=== PATIENT | male | born 1975 | race Caucasian/White ===

== ENCOUNTER 2018-07-16 21:45 | Emergency (ER) | payer OTHER, SELFPAY ==
[2018-07-16 21:46] VITALS: BP 157/94; PULSE 102; RESP 18; TEMP 36.4; O2SAT 95; BMI 44.6
--- NOTE | 2018-07-16 22:20 | ED.VISSUMM ---
- ER Visit Summary Date of Service: 07/16/18 Chief Complaint: Right knee pain History of Present Illness: The patient is a 43 M who presents with right knee pain that began tonight. Patient states he was at a gas station feeling his bobcat gas tank when he stepped off a trailer and felt a pop. Patient states he fell. Patient states the pain is worse over the lateral aspect of the right knee. Patient states the pain is worse with movement and weightbearing. Patient describes the pain as burning. Patient denies any paresthesias or weakness. Patient denies any other injuries. Physical Examination: Vital signs are stable. Patient is afebrile. Patient is in no acute distress. Musculoskeletal exam reveals tenderness over the lateral joint line of the right knee. There is no effusion. There is no bony crepitance or step-off. Range of motion was from 0 to 90 degrees. Further flexion was limited secondary to pain. Extensor mechanism is intact. There is no laxity noted. Henrry test was negative. Varus and valgus stress test were negative. There was pain with Lety testing. Pedal pulses are equal bilateral. There is no calf tenderness. Sensation was intact to light touch bilaterally. Test Results: X-rays of the right knee were obtained. There is no acute fracture loose body noted. These were interpreted by the radiologist and reviewed by myself. Emergency Department Course and Treatment: Patient was instructed to ice and elevate the right knee. Patient was given crutches. Patient states he will take [id number] Aleve as needed for pain. Patient was instructed to follow-up with his primary care physician in 5 to 7 days. Patient and his understood and were agreeable with the plan. All questions were answered. Disposition: Discharge home Impression: Right knee sprain This note was generated with [employer] dictation software. It may contain incorrect words, spelling, and punctuation that were not noted in review of the chart prior to signing ED Disposition - Plan for ED Patient: Disposition: Home or Assisted Living Diagnosis: Right knee sprain Instructions: ED Sprain Knee Referrals: Grant Tijerina [Primary Care Provider] - 5-7 Days
--- NOTE | 2018-07-16 22:23 | ED.DCSUM_ITS ---
- ER Visit Summary Date of Service: 07/16/18 Chief Complaint: Right knee pain History of Present Illness: The patient is a 43 M who presents with right knee pain that began tonight. Patient states he was at a gas station feeling his bobcat gas tank when he stepped off a trailer and felt a pop. Patient states he fell. Patient states the pain is worse over the lateral aspect of the right knee. Patient states the pain is worse with movement and weightbearing. Patient describes the pain as burning. Patient denies any paresthesias or weakness. Patient denies any other injuries. Physical Examination: Vital signs are stable. Patient is afebrile. Patient is in no acute distress. Musculoskeletal exam reveals tenderness over the lateral joint line of the right knee. There is no effusion. There is no bony crepitance or step-off. Range of motion was from 0 to 90 degrees. Further flexion was limited secondary to pain. Extensor mechanism is intact. There is no laxity noted. Henrry test was negative. Varus and valgus stress test were negative. There was pain with Lety testing. Pedal pulses are equal bilateral. There is no calf tenderness. Sensation was intact to light touch bilaterally. Test Results: X-rays of the right knee were obtained. There is no acute fracture loose body noted. These were interpreted by the radiologist and reviewed by myself. Emergency Department Course and Treatment: Patient was instructed to ice and elevate the right knee. Patient was given crutches. Patient states he will take [id number] Aleve as needed for pain. Patient was instructed to follow-up with his primary care physician in 5 to 7 days. Patient and his understood and were agreeable with the plan. All questions were answered. Disposition: Discharge home Impression: Right knee sprain This note was generated with [employer] dictation software. It may contain incorrect words, spelling, and punctuation that were not noted in review of the chart prior to signing ED Disposition - Plan for ED Patient: Disposition: Home or Assisted Living Diagnosis: Right knee sprain Instructions: ED Sprain Knee Referrals: Grant Tijerina [Primary Care Provider] - 5-7 Days
--- NOTE | 2018-07-16 22:30 | RAD_ITS ---
STUDY: X-RAY - RIGHT KNEE REASON FOR EXAM: Male, 43 years old. Pain. TECHNIQUE: 4 view(s) of the knee. COMPARISON: None. FINDINGS: Normal visualized distal femur. Normal visualized proximal tibia and fibula. Normal proximal tibiofibular articulation. There is no demonstrated fracture. Normal medial femorotibial compartment. Normal lateral femorotibial compartment. Normal patellofemoral articulation. There is no demonstrated joint effusion. 5 mm metal foreign body seen in the posterior medial soft tissues. The soft tissue structures are otherwise unremarkable. RAD/Knee 4 or More Views IMPRESSION: No acute abnormality. Electronically Signed: Ramon Shafer MD at 23:12 EDT , Service support ,
[2018-07-16 23:36] VITALS: BP 152/91; PULSE 82; RESP 18; O2SAT 96
== END 2018-07-16 23:36 | disposition home or self-care (01) ==
PROVIDERS: Emergency Provider Emergency Medicine; Family Provider Family Medicine; PCP Family Medicine
DX: S83.91XA Sprain of unspecified site of right knee, initial encounter (principal); R11.0 Nausea; W17.89XA Other fall from one level to another, initial encounter; Y93.9 Activity, unspecified; Y92.9 Unspecified place or not applicable; I10 Essential (primary) hypertension; Z79.899 Other long term (current) drug therapy
CPT/HCPCS: 73564; 99283

== ENCOUNTER → 2018-07-28 | Outpatient (CLI) | payer OTHER, SELFPAY ==
[2018-07-20 08:20] VITALS: BMI 44.6
--- NOTE | 2018-07-28 16:30 | MRI_ITS ---
STUDY: MRI RIGHT KNEE REASON FOR EXAM: Male, 43 years old. Injury 2 weeks ago. TECHNIQUE: Standardized fat and water weighted pulse sequences were obtained in all 3 orthogonal planes. COMPARISON: X-ray July 16, 2018 FINDINGS: There is partial meniscocapsular separation of the posterior horn of the medial meniscus. Normal hyaline cartilage of the medial femorotibial compartment. Normal medial femoral condyle and tibial plateau. There is a partial sprain of the MCL with interstitial and periligamentous edema. Normal distal semimembranosus, gracilis and semitendinosus tendons. There is a lateral meniscus tear of the posterior horn, series 4 images 19/48 and /. Normal hyaline cartilage of the lateral femorotibial compartment. There is reactive marrow edema of the lateral femoral condyle and posterior lateral tibial plateau. Normal proximal tibiofibular articulation. Normal lateral collateral (fibular) ligament. Normal popliteus tendon. Normal biceps femoris tendon. There is discontinuity with rupture and tear of the anterior cruciate ligament (ACL), series 4 image 25/48. Normal posterior cruciate ligament (PCL). Normal congruent patellofemoral articulation. Normal hyaline cartilage of the patellofemoral compartment. Normal medial and lateral patellar retinaculum. Normal quadriceps tendon. There is tendon thickening of the distal patellar tendon, with corticated osseous fragments of the anterior tibial tubercle, consistent with a sequela of remote Carlisle-Schlatter's disease. Normal Hoffa's fat pad. There is a moderate volume joint effusion. The soft tissues are unremarkable. The otherwise visualized osseous structures are unremarkable. MRI/Lower Ext Joint Only (Routine) IMPRESSION: Rupture with tear of the anterior cruciate ligament. Lateral meniscus tear. Meniscocapsular separation of the medial meniscus. Medial collateral ligament sprain. Joint effusion. Bone bruising. Electronically Signed: Anthony Corona MD at 19:07 EDT , Service support ,
== END | disposition home or self-care (01) ==
LOC: MRI 16:14
PROVIDERS: Family Provider Family Medicine; PCP Family Medicine; Referring Provider Orthopaedic Surgery; Visit Provider Orthopaedic Surgery
DX: S89.91XA Unspecified injury of right lower leg, initial encounter (principal); M25.561 Pain in right knee
CPT/HCPCS: 73721

== ENCOUNTER 2018-08-09 10:01 | Day surgery (SDC) | payer OTHER, SELFPAY ==
[2018-08-04 13:22] VITALS: BMI 44.6
--- NOTE | 2018-08-08 16:15 | PCM.HP.BLA ---
History and Physical Date of Admission: 08/09/18 MR#:[id number] Name: SARY GUZMAN Rep #: [id number] : 1975 Provider: Sergio Rizo DO Age/Sex: 43/M Location: [facility] [place] Status: Signed Intake Intake Visit Reasons: right knee Allergies No Known Allergies Allergy (Verified 07/16/18 21:46) Medications Lisinopril [Zestril] 20 mg PO DAILY #30 tab 08/01/15 [Rx Confirmed 07/16/18] rizatriptan 10 mg tablet 10 mg PO PRN PRN 09/13/17 [History Confirmed 07/16/18] PFSH Medical History Diverticulitis (Acute) Migraines (Acute) HTN (hypertension) (Chronic) Surgical History Hx of tonsillectomy (Acute) Family History Grandfather Colon cancer Father Hypertension Thyroid disorder Social History Smoking Status: Former smoker alcohol intake: never HPI right knee: Chief Complaint: right knee MRI f/u Details: Parts of this documentation were recorded by a scribe, this documentation accurately reflects the service provided and the decisions made by me, Sergio Rizo DO 08/01/18 0800. SARY GUZMAN is a 43 year old M here today for F/U after MRI of right knee. Patient states the pain has lessened. Denies any giving out. Patient does have occasional painful popping/clicking. Ortho Exam Right Knee Skin/Wound: No erythema, No ecchymosis, Yes swelling Homans Sign: No 2+: Effusion Knee ROM: Yes ROM-Extension -20 to 0, No ROM-Flexion 0-140 (90) Examination: Yes Med jt line tenderness, Yes Lat jt line tenderness, Yes Pain with flexion, Yes Lety's Test (lat and med pain) Stability: NML: Valgus 0, NML: Valgus 30, NML: Varus 0, NML: Varus 30, 2+: Henrry (2B), 3+: Anterior Drawer Apprehension with Lateral Translation: No KNEE: intact quad and patellar tendon Supplemental Info 07/28/2018 MRI right knee: ACL rupture posterior horn lateral meniscus tear medial meniscal capsular separation and MCL sprain Assessment & Plan Problems 1. Other tear of lateral meniscus of right knee as current injury, subsequent encounter S83.281D 2. Peripheral tear of medial meniscus of right knee as current injury, subsequent encounter S83.221D 3. Complete tear of anterior cruciate ligament of right knee, subsequent encounter S83.511D Plan Reviewed patient MRI of right knee. He does have a full-thickness ACL tear a radial tear posterior horn lateral meniscus and a meniscal capsular separation medial meniscus. He has been improving and denies instability. We did discuss ACL reconstruction medial meniscus repair if needed partial lateral meniscectomy versus repair as recommended surgical intervention. However since he is 43 and not having instability and his pain is improving he does not necessarily require an ACL reconstruction we did discuss hamstring compensation. He wishes to think it over and will let us know how he wishes to proceed. Patient educated that he did tear is ACL, lateral and medial meniscus. Educated that his lateral meniscus may be non repairable and would need to be partially removed. May reconstruct the ACL and possibly the medial meniscus repaired. Would use a cadaver graft. If he does not wish to have surgery he can do PT and strengthen his other muscles in the knee. If he chooses to repair the ACL and meniscus he will be non-weight bearing for 6 weeks post op for a meniscus repair. If patient wishes to proceed with surgery he could have this done on 08/11/18 or sometime in August. Reviewed the pre-operative plans with the patient. Risks and benefits of the procedure were fully explained, including but not limited to infection, neurovascular injury, continued pain, arthritis, stiffness, need for further surgery, re-injury, DVT, PE, general risks of anesthesia, and loss of limb or life. The patient understands all the risks/benefits. Educated that this surgery could over 2 hours for all 3 repairs. Patient wishes to think about his options and call into office when he decides what he would like to proceed with. Coding Level of Care Code Off vis,est,level 3 Diagnoses Other tear of lateral meniscus of right knee as current injury, subsequent encounter S83.281D ??Encounter type: subsequent encounter ??Tear current or old: current ??Meniscus tear of knee type: other type Peripheral tear of medial meniscus of right knee as current injury, subsequent encounter S83.221D ??Encounter type: subsequent encounter ??Tear current or old: current ??Meniscus tear of knee type: peripheral Complete tear of anterior cruciate ligament of right knee, subsequent encounter S83.511D ??Encounter type: subsequent encounter 08/01/18 1521 <Electronically signed by Sergio Rizo DO> Date Sergio Rizo DO I have re-examined the patient. There are no clinical changes since date of exam
[2018-08-09] VITALS (8 sets, daily range): BP systolic 127–155; BP diastolic 72–100; PULSE 65–87; RESP 14–18; TEMP 36–36.6; O2SAT 87–97; BMI 44.8
[2018-08-09] MEDS: Cefazolin 2 GM in 0.9% Normal Saline 100 ML IV (12:59)
[2018-08-09] MEDS: Epinephrine (1 mg/ml) 1 MG/ML VIAL (13:31)
[2018-08-09] MEDS: Bupiv/Epi 0.5% Mpf 30 ML Vial (13:31)
[2018-08-09] MEDS: Bupivacaine Mpf 0.5% 30 ML VIAL (14:43)
[2018-08-09] MEDS: Morphine 4 MG/ML Syringe (14:43)
--- NOTE | 2018-08-09 15:03 | DCINST_ITS ---
Discharge Diet: No Restrictions Weight Bearing Status: Weight bearing as tolerated Additional Activity Instructions:: Ice and elevate next 7 days .keep dressing on clean and dry for 48 hours then may remove begin showering daily but do not submerge in tub or pool. After shower may apply Band-Aids . Encourage knee range of motion weightbearing as tolerated, use crutches until confident in knee then may discontinue. No strenuous activity. When not ambulating keep iced and elevated next 72 hours. Call your doctor if you observe: Fever of 101 or Higher, Uncontrolled pain Additional Instructions: take aspirin 325 mg 1 tab by mouth every 8hrs for 2 weeks to prevent blood clot. Allergies/Adverse Reactions: Allergies No Known Allergies Allergy (Verified 08/08/18 15:57) Medications to take at Discharge Lisinopril [Zestril] 20 mg PO DAILY #30 tab 08/01/15 rizatriptan 10 mg tablet 10 mg PO PRN PRN 09/13/17 Aspirin 325 mg PO BID 14 Days #28 tablet 08/09/18 Oxycodone HCl/Acetaminophen [Percocet 5/325] 1 - 2 tablet PO Q4H PRN PRN 6 Days #50 tablet 08/09/18 The following prescriptions were given: Oxycodone HCl/Acetaminophen [Percocet 5/325] 1 - 2 tablet PO Q4H PRN PRN 6 Days #50 tablet PRN Reason: Pain Aspirin 325 mg PO BID 14 Days #28 tablet Primary Care Physician: Grant Tijerina [Primary Care Provider] - Test Results: Test results from this visit will be discussed in further detail at your follow- up appointment, if applicable. Please Follow Up With: Sergio Rizo DO - 2 weeks
--- NOTE | 2018-08-09 15:15 | OP.PCM_ITS ---
Report of Operation Date of Procedure: 08/09/18 Description of Surgical Findings:: Preoperative diagnosis: Right knee ACL rupture questionable medial meniscus meniscal capsular separation posterior root lateral meniscus tear Postoperative diagnosis: ACL rupture small radial tear posterior root lateral meniscus no meniscal tear medially small area grade III chondromalacial lateral femoral condyle Procedure: Arthroscopic ACL reconstruction with semitendinosus RTI allograft partial lateral meniscectomy implants: Arthrex ACL button 9.0 biocomposite tibial screw Anesthesia: General postoperative femoral block EBL: 15 Complications: None Condition: Stable to PACU Indication for procedure: This is a 43-year-old male who was jumping from his truck and landed incorrectly medial lately had an injury to his right knee did have MRI with the aforementioned diagnoses. Discussed operative versus nonoperative intervention risk benefits and alternatives were reviewed including risk of bleeding infection nerve, artery, bone, tissue damage, blood clot need for further surgery and continued pain. Expected postoperative course postoperative physical therapy needs Procedure: Patient was met in the preoperative holding area. Once again the operative extremity was identified by both patient and physician and was marked. Patient was met by anesthesia and brought back to the operating room on a wheeled cart and transferred to the operating table in the supine position. Anesthesia was started. A well-padded tourniquet was placed on the right upper thigh. A right lower extremity leg wright was placed. The left lower extremity was well-padded the end of the bed was flexed to 90 degrees. The patient was prepped and draped in the usual sterile fashion and a timeout was called to ensure the proper patient procedure and extremity were being contemplated. An Esmarch was used to exsanguinate the extremity and the tourniquet was inflated to 300 mmHg. On the back table the allograft was prepared with 2 fiber link whipstitches and was sized as an 8-1/2 diameter. 11 blade scalpel was used to make a stab incision in the anterior lateral portal and the arthroscope was inserted into the intercondylar notch inflow and outflow tubes were attached and arthroscopic visualization began. The medial compartment was entered and 18- gauge gauge spinal needle was used to establish an anterior medial portal both portals were hugging the patellar tendon to aid in the ACL reconstruction visualization of the medial compartment with probing there was no meniscal capsular separation and no significant hyalin cartilage defects. The intercondylar notch was entered the stump of the ACL was found and was debrided and the footprints were prepared on the femoral and tibial side with a shaver and ArthroCare wand. The lateral compartment was entered and there was noted to be a radial tear of the posterior root which was debrided with a shaver but there is no further meniscal pathology. There was an area of grade 3 cartilage wear that was in isolation over the lateral femoral condyle there was no loose cartilage in the area. The patellofemoral space was investigated and was free of pathology. At this point the arthroscope was repositioned into the medial portal and the femoral guide was used and set at 110 degrees and with the use of a flip cutter the femoral tunnel was made in the low posterior position the tunnel measured 30 mm. At this point a fiber stick was inserted through the cannula and was retrieved through the lateral portal instead it to itself for later use. Attention was then turned towards the tibial tunnel and once again with the use of a flip cutter set at 60 degrees the tibial tunnel was cut in a retrograde manner. Following this a guidepin was inserted through the tibial tunnel and a reamer was used to open the lateral cortex only. Shaver was then inserted through the tunnel and debris was removed we then retrieved the fiber wire through the tibial tunnel switched our arthroscope to a 70 degree camera and visualize the button passing through the femoral tunnel and flipping once we were assured the button was indeed flipped the graft was then advanced 25 mm into the femoral tunnel the graft was marked. At this point the graft was tensioned and cycled nitinol wire was passed anteriorly on the tibial socket and a 9 mm interference bio composite screw was inserted over the wire the remainder of the tensioning was performed in the femoral tunnel by advancing the white tails of the bone there was excellent positioning of the graft there was no graft impingement in full extension the intra-articular injection was made through the scope suture portals were closed with 3-0 nylon a 3-0 Vicryl was used as a subcutaneous stitch in the tibial incision and 3-0 nylon was used in the skin. Dressing was applied in the form of Xeroform 4 x 4 ABD web roll and an Jax wrap and knee immobilizer patient tolerated the procedure well all counts were correct brought back to the PACU in stable condition
[2018-08-09] MEDS: Acetaminophen 325 MG Tablet PO (16:56)
[2018-08-09] MEDS: oxyCODONE 5 MG Tablet PO (16:56)
== END 2018-08-09 17:27 | disposition home or self-care (01) ==
LOC: SDC 10:07 → AC 10:08
PROVIDERS: Family Provider Family Medicine; PCP Family Medicine; Referring Provider Orthopaedic Surgery; Visit Provider Orthopaedic Surgery
PROC: (CPT 29881; principal; 2018-08-09 12:25)
DX: S83.511A Sprain of anterior cruciate ligament of right knee, initial encounter (principal); W17.89XA Other fall from one level to another, initial encounter; Y93.9 Activity, unspecified; Y92.9 Unspecified place or not applicable; Y99.9 Unspecified external cause status; S83.281A Other tear of lateral meniscus, current injury, right knee, initial encounter; I10 Essential (primary) hypertension; Z87.891 Personal history of nicotine dependence; G43.909 Migraine, unspecified, not intractable, without status migrainosus; Z79.899 Other long term (current) drug therapy
CPT/HCPCS: 01400; 29881; 29888; 64447; J7120; J2405

== ENCOUNTER 2018-12-07 16:00 | Outpatient (RCR) | payer OTHER, SELFPAY ==
[2018-08-19 14:32] VITALS: BMI 44.8
--- NOTE | 2018-08-23 14:06 | HP.PTEVAL_ITS ---
Patient's Visit Information SARY GUZMAN is a 43 year old M referred to Physical Therapy by TRISHA Portillo with a diagnosis of R ACL reconstruction and late menisectomy s/p 08-09-18. Date of Evaluation: 08/23/18 Physical Therapist: KAITY Multani - Visit Plan Frequency: 2-3x /Week Duration: 3 Months Plan: +++Hernandes Protocol. 2-3 X/ week for 8 weeks for R knee AROM, stretching, strengthening of hip and knee, gait training, balance and proprioception, with HEP and E-stim and ice as needed. - Subjective Findings: Pt injured himself by mis stepping a 3 foot drop. Pt was feeling good this weekend but now he is swollen and not feeling so good. Pt had R ACl surgery and lateral menisecotmy on 08-09-18. said he could drive. Today was his first day back to work.... 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 He is to wear his brace when he is out and about. He has stairs at home ( with a railing). He has not taken pain meds since Wednesday. he is still icing and elevating. He is not sleeping great... he is uncomfortable and hard to roll over. - Pain R knee pain Pain Intensity (Out of 10): 3 - Objective Gait: walks with decrease stance time on the R LE. Knee AROM: - 2 degrees and 95 degrees R knee flexion. Slight extension lag with SLR.. Pt is able to complete 2 X 10 SLR without issue. LE MMT: R knee flexion and extension was not tested. R hip abd 4/5. L knee flex and ext 4+/5, L hip abd 4+/5. stairs: step 2 gait pattern... Good paterllar mobility. Swelling present but not excessive - Goals Goal 1:: I HEP Goal Time Frame: 4-6 Weeks Goal 2:: Be able to walk with normal gait pattern without having a limp Goal Time Frame: 4-6 Weeks Goal 3:: Increase R knee AROM 0 degrees to 125 degrees R knee flexion Goal Time Frame: 4-6 Weeks Goal 4:: Increase R LE strength by 1/2 muscle grade ( at time of eval: R knee flexion and extension was not tested and R hip abd 4/5) Goal Time Frame: 4-6 Weeks - Rehabilitation Potential Rehabilitation Potential: Good - Anticipated Interventions Patient/Client Instruction: Educate patient on: Condition, Plan of Care For the Purpose of:: To decrease pain, To decrease swelling/inflammation, To increase ROM, To improve nutrient delivery to tissue, To improve muscle performance and motor function, To improve ability to perform ADL's, To increase tolerance to activity/condition/position, To improve performance and independence with ADL's, To improve ability of physical actions for home/community/work/leisure, To improve gait and locomotor functions, To improve health of tissue, To decrease soft tissue restriction, To increase flexibility/ROM, To improve balance Therapeutic Exercise to Include: Strength training, Endurance training, Balance training, Flexibilty training, Gait and locomotor training, Active ROM For the Purpose of:: To decrease pain, To decrease swelling/inflammation, To increase ROM, To improve nutrient delivery to tissue, To improve muscle performance and motor function, To improve ability to perform ADL's, To increase tolerance to activity/condition/position, To improve performance and independence with ADL's, To decrease level of supervision to perform tasks, To improve ability of physical actions for home/community/work/leisure, To improve gait and locomotor functions, To improve health of tissue, To decrease soft tissue restriction, To increase flexibility/ROM, To improve balance Functional Training to Include: Gait training For the Purpose of:: To improve gait and locomotor functions IF ES: Yes Cryotherapy (ice pack, ice massage): Yes For the Purpose of:: To decrease pain, To decrease swelling/inflammation, To increase ROM, To improve nutrient delivery to tissue Thank you for the opportunity to evaluate your patient. For Medicare and Medicare HMO plans, please review the plan of care and approve it. It will need to be FAXED BACK to us at [phone] for Medicare purposes. For Medicare only, by signing this I certify the plan of care. Please let me know if there are questions or concerns regarding this plan of care. Physician Signature: Date:
--- NOTE | 2018-10-04 16:16 | HP.PTREVAL ---
TRISHA Portillo, It has been my pleasure to treat SARY GUZMAN over the last 10 visits for R ACL reconstruction and late menisectomy s/p 08-09-18. Please see the progress note below for an update on the physical therapy plan of care! Subjective: Pt has a follow up with Dr Mcnair on Oct 28. He is doing his original HEP at this point. Pt feels that his R knee is still weak. Objective/Function: Knee AROM: -2 degrees from full extension to 122 degrees R knee flexion. Stairs: Still has trouble due to strength ascending the steps with the R LE and slightly decreased eccentric control descending the stairs. SLB R approx 8 deconds ( L approx 10 seconds). LE MMT: R hip abd 4/5 and L 4+/5, R Plan Plan: +++Hernandes Protocol. 2-3 X/ week for 8 weeks for R knee AROM, stretching, strengthening of hip and knee, gait training, balance and proprioception, with HEP and E-stim and ice as needed. Goals Goal 1:: I HEP Goal Time Frame: 4-6 Weeks Goal Progress: Progressing Goal 2:: Be able to walk with normal gait pattern without having a limp Goal Time Frame: 4-6 Weeks Goal Progress: Progressing Goal 3:: Increase R knee AROM 0 degrees to 125 degrees R knee flexion Goal Time Frame: 4-6 Weeks Goal 4:: Increase R LE strength by 1/2 muscle grade ( at time of eval: R knee flexion and extension was not tested and R hip abd 4/5) Goal Time Frame: 4-6 Weeks Goal Progress: Progressing Anticipated Interventions Patient/Client Instruction: Educate patient on: Condition, Plan of Care For the Purpose of:: To decrease pain, To decrease swelling/inflammation, To increase ROM, To improve nutrient delivery to tissue, To improve muscle performance and motor function, To improve ability to perform ADL's, To increase tolerance to activity/condition/position, To improve performance and independence with ADL's, To improve ability of physical actions for home/community/work/leisure, To improve gait and locomotor functions, To improve health of tissue, To decrease soft tissue restriction, To increase flexibility/ROM, To improve balance Therapeutic Exercise to Include: Strength training, Endurance training, Balance training, Flexibilty training, Gait and locomotor training, Active ROM For the Purpose of:: To decrease pain, To decrease swelling/inflammation, To increase ROM, To improve nutrient delivery to tissue, To improve muscle performance and motor function, To improve ability to perform ADL's, To increase tolerance to activity/condition/position, To improve performance and independence with ADL's, To decrease level of supervision to perform tasks, To improve ability of physical actions for home/community/work/leisure, To improve gait and locomotor functions, To improve health of tissue, To decrease soft tissue restriction, To increase flexibility/ROM, To improve balance Functional Training to Include: Gait training For the Purpose of:: To improve gait and locomotor functions IF ES: Yes Cryotherapy (ice pack, ice massage): Yes For the Purpose of:: To decrease pain, To decrease swelling/inflammation, To increase ROM, To improve nutrient delivery to tissue Please do not hesitate to contact me at [phone] by phone or if you have questions or concerns regarding this new plan of care! Sincerely, Geena Hernandez, MPT
--- NOTE | 2018-12-07 16:28 | HP.PTDCSUM ---
HP - PT D/C Summary It has been my pleasure to treat SARY GUZMAN under orders from TRISHA Portillo, for the diagnosis of R ACL reconstruction and late menisectomy s/p 08-09-18 for a total of 21 visit(s). Discharge Date: 12/07/18 Please see the following information for a summary of their discharge status. - Subjective Subjective: Pt feels good. No pain. He feels strong. - Pain R knee pain Pain Intensity (Out of 10): 0 - Overall Improvement % Improvement: 95 - Objective Objective/Function: R AROM 0-130 degrees flexion. Normal gait pattern. Able to hop in place without any pain. LE MMT: R hip abd 4/5, knee flex and knee ext 4/5, hip ext 4/5. - Goals Goal 1:: I HEP Goal Progress: Goal Met Goal 2:: Be able to walk with normal gait pattern without having a limp Goal Progress: Goal Met Goal 3:: Increase R knee AROM 0 degrees to 125 degrees R knee flexion Goal Progress: Goal Met Goal 4:: Increase R LE strength by 1/2 muscle grade ( at time of eval: R knee flexion and extension was not tested and R hip abd 4/5) Goal Progress: Goal Met - Plan Plan: DC PT to HEP - D/C Information Discharge Comments: DC PT to HEP to continue with Clam shells, Inchworms, and SLB and squatting activities If there are questions or concerns regarding this patient's physical therapy, please feel free to call me at [phone]. Thank you for the referral of this patient. Sincerely, Geena Hernandez, MPT
== END 2018-12-07 19:00 | disposition home or self-care (01) ==
LOC: PT 16:00
PROVIDERS: Family Provider Family Medicine; PCP Family Medicine; Referring Provider Physician Assistant; Visit Provider Physician Assistant
DX: Z98.890 Other specified postprocedural states (principal)
CPT/HCPCS: 97014; 97032; 97110; 97161; 97530; G0283

== ENCOUNTER 2020-10-14 10:24 | Day surgery (SDC) | payer OTHER, SELFPAY ==
[2020-07-17 10:57] VITALS: BMI 48.7
[2020-10-14] VITALS (7 sets, daily range): BP systolic 102–144; BP diastolic 60–96; PULSE 84–101; RESP 16–18; TEMP 35.9–37; O2SAT 93–97; BMI 48.1
--- NOTE | 2020-10-14 | LES_PTH ---
PATIENT: SARY GUZMAN LOC: [facility] [place] U#:[id number] AGE/SX: 45/M ROOM: RE10/14/[address]: Dr. Eliezer Kemp MD : 1975 BED: DIS: 10/14/2020 SPEC #: [id number] RECD: 10/14/20 15:01 STATUS: JERO REMedardo #: [id number] BRITTANEY: 10/14/20 00:[address]: Eliezer Kemp DEPT: SURGICAL PATHOLOGY RECD BY: Fernando Adams ENTERED: 10/15/20 08:02 SP TYPE: Lesion OTHR DR: Dr. Grant Tijerina MD Tissues: Skin of scalp, NOS Procedures: Surgery Specimen Level IV HEADER OPERATION: Excision lesion top of scalp, skin grafting PRE-OP DIAGNOSIS: Excision 1.1 cm pigmented lesion top of scalp, skin grafting TISSUE SUBMITTED: Lesion of scalp, stitch a 12 o?clock MICROSCOPIC DIAGNOSIS Skin lesion of scalp, biopsy: Pigmented compound nevus. AM:agatha 10/16/2020 COMMENT Case has been reviewed in consultation with Dr. rUrutia who concurs with the above diagnosis. IDC:SJ MICROSCOPIC DESCRIPTION Slides are reviewed. GROSS DESCRIPTION Received in fixative is one container labeled with the patient's name and designated lesion top of scalp, suture at 12 o?clock. The specimen consists of a discoid fragment of hair-bearing skin measuring 1.2 x 1.2 cm and a depth of excision measuring 0.4 cm. The specimen is differentially inked as follows: 12 o?clock ? black, 3 o?clock ? yellow, 6 o?clock ? blue and 9 o?clock ? red. The specimen is serially sectioned and totally submitted in one cassette. / AM:agatha 10/15/20 TC:5 CPT: 37977
--- NOTE | 2020-10-14 10:02 | PCM.HP.BLA ---
History and Physical Date of Admission: 10/14/20 HISTORY OF PRESENT ILLNESS 45 year old man presents with a pigmented lesion top of scalp that has increased in size over the last several months and has become more raised in configuration and has developed irregular borders. He has cut it while shaving. He also has noticed it has gotten darker in color. He denies fever. He denies trauma. He denies any recent infection. He presents at this time for further evaluation and treatment. PAST MEDICAL HISTORY Diverticulitis HTN (hypertension) Migraines Neoplasm of skin of scalp PAST SURGICAL HISTORY tonsillectomy ALLERGIES No Known Allergies MEDICATIONS lisinopril rizatriptan FAMILY HISTORY Grandfather Colon cancer Father Hypertension Thyroid disorder Kidney disease Mother High cholesterol SOCIAL HISTORY Smoking Status: Never smoker alcohol intake: current alcohol intake frequency: holidays/special occasions only substance use type: does not use REVIEW OF SYSTEMS General - Denies fever, fatigue, and weight loss. Eyes - Denies cataracts and glaucoma. ENT - Denies nasal congestion and sore throat. Endocrine - Denies excessive thirst and urination. Skin - Has enlarging pigmented lesion top of scalp. Denies skin cancer. Musculoskeletal - Denies joint pain, joint stiffness, weakness of muscles and joints, back pain, and arthritis. Neuro - Has headaches. Cardiovascular - Denies chest pain, fatigue, and shortness of breath with exertion. Psych - Denies anxiety and depression. Respiratory - Denies chronic cough and shortness of breath. Gastrointestinal - Denies nausea, vomiting, diarrhea, and constipation. Hematologic - Denies abnormal bruising and bleeding. Genitourinary - Denies hematuria and urinary frequency. PHYSICAL EXAMINATION General - Alert and Oriented. HEENT - PERRL. EOMI. Throat is clear. On the top of scalp is a pigmented lesion. Measures 1.1 cm. Has irregular borders. It is raised in configuration. No ulceration. Lesion is nontender. No other suspicious lesions noted. Neck - Supple and nontender. No cervical adenopathy. No suspicious lesions noted. Lungs - Clear to auscultation. Heart - Regular rate and rhythm. Abdomen - Soft and nondistended. Extremities - FROM. No axillary adenopathy. Radial pulses are palpable. Neuro - CN II-XII grossly intact. Psych - Normal mood and affect. ASSESSMENT 1.1 cm pigmented lesion top of scalp. PLAN Recommend excision of this pigmented lesion top of scalp and send it to Pathology for analysis to rule out carcinoma. If carcinoma is present, then further excision will be done. Reconstruction will be with skin grafting. Surgery can be done on an outpatient basis under local anesthesia and IV sedation. Patient was informed of the risks and complications of the procedure including alternatives to surgery. These were discussed with the patient personally. Patient voices understanding and wishes to proceed. Some of the risks and complications were included in a form from the [employer]. We discussed the current risks associated with COVID-19. While it is understood that there is a community spread of COVID-19, the risk of mat COVID-19 while at [facility] ([facility]) is very low; however, the risk cannot be completely mitigated because of the community spread of the disease. We discussed in detail the risk of exposure to and/or potential harm posed by the COVID-19 virus with having a surgery/procedure at this time versus the risk of delaying the surgery/procedure. It is not possible to know either the risk of delaying the surgery or procedure or chance of getting an infection with perfect accuracy, but a joint decision was made to proceed at this time with the scheduled surgery/procedure as indicated on the consent form. Patient was notified that we will need to comply with any screening or testing [facility] wishes to perform or that surgery may be delayed for any positive results.
[2020-10-14] MEDS: Lactated Ringers 1,000 ML 100 ML IV (11:59)
[2020-10-14] MEDS: Lidocaine 1% /Epi 1:100 (20ml) 20 ML Vial (12:44)
[2020-10-14] MEDS: Mupirocin Ointment 22gm Tube 1 APPLIC (13:14)
--- NOTE | 2020-10-14 13:48 | PCM.OPRPT ---
Problems Associated Problem List Diagnoses (1) Neoplasm of skin of scalp: Report of Operation Date of Procedure: 10/14/20 Pre-Operative Diagnosis: 1.1 cm pigmented lesion top of scalp. Post-Operative Diagnosis: Same. Surgery/Procedure Performed:: Excision 1.1 cm pigmented lesion top of scalp with FTSG reconstruction from right neck (2.25 cm2). Description of Surgical Findings:: 45 year old man presents with a pigmented lesion top of scalp that has increased in size over the last several months and has become more raised in configuration and has developed irregular borders. He has cut it while shaving. He also has noticed it has gotten darker in color. He denies fever. He denies trauma. He denies any recent infection. Patient was informed of the risks and complications of the procedure including alternatives to surgery. These were discussed with the patient personally. Patient voices understanding and wishes to proceed. Some of the risks and complications were included in a form from the [employer]. Size of skin graft top of scalp - 1.5 x 1.5 cm. Surgeon: Eliezer Kemp chemical process engineer: None Type of Anesthesia: General Specimen's removed: Pigmented lesion top of scalp to Pathology. Drains: None. Estimated Blood Loss (mL): 25. Description of Procedure: Patient was taken to OR in supine position and was placed under general anesthesia. The top of scalp and right neck areas were prepped and draped in the usual fashion. SCD's were placed for DVT prophylaxis. Perioperative antibiotics were given intravenously. Using xylocaine with epinephrine, the lesion top of scalp and an ellipse of skin right neck were infiltrated. After waiting 5 minutes for the anesthetic to take effect, I excised the pigmented lesion top of scalp in a circular fashion into the subcutaneous tissue. A suture was marked at 12 oclock position for pathology orientation. The lesion was sent to Pathology for analysis to rule out carcinoma. I excised the lesion top of scalp with a 2 mm margin in all directions thus making this a 1.5 cm excision. Hemostasis was obtained with electrocautery. The size of the defect to be skin grafted is 1.5 x 1.5 cm or 2.25 cm2. I made an elliptical oblique incision right neck down into the subcutaneous tissue. Th subcutaneous tissue was removed from the undersurface of the dermis thus fashioning a full thickness skin graft. The skin graft was placed in saline. I closed the right neck donor wound in a layered fashion. Hemostasis was obtained with electrocautery. For the deep dermis and subcutaneous tissue I used 5-0 Monocryl interrupted sutures. The skin was approximated with 5-0 Prolene simple interrupted sutures. Antibiotic ointment was applied followed by a 4x4 gauze and an Op-site dressing. I took the full thickness skin graft and placed it in the scalp defect and secured it to the skin edges with 4-0 Chromic interrupted sutures. 4-0 Chromic sutures were also used for central quilting stabilization. Antibiotic ointment was applied to the skin graft followed by Xeroform gauze and cotton ball soaked in saline. It was secured to the skin with 4-0 Nylon tie over stent suture dressing. Patient tolerated the procedure well and was sent to PACU in satisfactory condition. Patient will be sent home on antibiotics and pain medication. He will keep his head elevated during the initial postoperative period. Patient will followup at end of the week for a wound check and skin graft dressing change and for discussion of the pathology report. The sutures from the donor incision right neck will be removed the following week. Grafts/Implants Used: None. Complications None. Admit VTE Documentation VTE Present on Admission: No VTE Mechan Device Prophylaxis: SCD's VTE Pharm Prophylaxis ordered?: No Addendum Addendum: Surgery Charges CPT - 94337 ICD-10 - D49.2 73117 D49.2
--- NOTE | 2020-10-14 13:53 | PCM.DC ---
Discharge Instructions Diet Discharge Diet: No restrictions Activity Discharge Activity: May Shower (in two days from the neck down. Wash face gently in the sink.) and - (no heavy lifting. keep head elevated.) May shower in (days): 2 (in two days from the neck down. Wash face gently in the sink.) May resume sexual activity in: No Restrictions Weight Bearing Status: Weight bearing as tolerated Lifting Restrictions: 20 lbs. Keep extremity elevated above heart level: - (elevate head.) Dressing / Incision Call your doctor if your incision/area has: Continuous Slow Oozing, Sudden Increased Bleeding, Increased Pain/ Swelling, Increased Redness, Foul Smelling Discharge and Swelling at the incision site Call your doctor if you observe: Fever of 101 or Higher, Coldness, Increased Pain, Shortness of breath, Chest pain, Calf discomfort and Uncontrolled pain Change Dressing in: do not change dressing (will change the scalp graft dressing in the office.) Remove Dressing in: 2 days (neck dressing only.) Cleanse incision/area with: - (may shower from the neck down in two days. Wash face gently in the sink.) Follow Up Care Please Follow Up With: Eliezer Kemp MD When: wednesday10/18/20. Call [phone] for appt. Test Results: Test results from this visit will be discussed in further detail at your follow-up appointment, if applicable. Discharge Plan Admission Primary Reason for Your Visit: lesion top of scalp surgery Attending Provider: Eliezer Kemp Primary Care Provider: Grant Tijerina Discharge Orders/Prescriptions Prescriptions: New clindamycin HCl [Cleocin HCl] 300 mg capsule 300 mg PO TID 5 Days Qty: 15 RF: 0 oxycodone-acetaminophen [Percocet] 5-325 mg tablet 1 tab PO Q6H PRN (Reason: pain (scale score 7-10)) 5 Days Qty: 20 RF: 0 Continued lisinopril 20 MG tablet 20 mg PO DAILY Qty: 30 RF: 1 rizatriptan 10 mg tablet 10 mg PO PRN PRN (Reason: Migraine Symptoms) RF: 0 Referrals / Follow Up: Grant Tijerina MD [Primary Care Provider] - Disposition Disposition (needs filled in before D/C Order can be placed): Home, Self Care
[2020-10-14] MEDS: oxyCODONE 5 MG Tablet PO (15:44)
[2020-10-14] MEDS: Acetaminophen 325 MG Tablet PO (15:44)
== END 2020-10-14 15:53 | disposition home or self-care (01) ==
LOC: SDC 10:29 → AC 10:58
PROVIDERS: PCP Family Medicine; Referring Provider Surgery; Visit Provider Surgery
PROC: (CPT 11422; principal; 2020-10-14 11:45)
DX: D22.4 Melanocytic nevi of scalp and neck (principal); I10 Essential (primary) hypertension; G43.909 Migraine, unspecified, not intractable, without status migrainosus; Z87.19 Personal history of other diseases of the digestive system; Z79.899 Other long term (current) drug therapy
CPT/HCPCS: 00300; 11422; 15220; 87426; 88305; C9803; J7120; J2405

== ENCOUNTER → 2020-11-01 | Outpatient (CLI) | payer OTHER, SELFPAY | END | disposition home or self-care (01) | PROVIDERS: PCP Family Medicine; Visit Provider Nurse Practitioner Family | DX: T86.821 Skin graft (allograft) (autograft) failure (principal); D49.2 Neoplasm of unspecified behavior of bone, soft tissue, and skin | CPT/HCPCS: 87070; 87075; 87205 ==

== ENCOUNTER → 2022-09-16 | Outpatient (CLI) | payer OTHER, SELFPAY ==
[2022-09-20 01:06] LABS: Beef <0.10 kU/L (Class 0); Clam <0.10 kU/L (Class 0); Codfish <0.10 kU/L (Class 0); Corn <0.10 kU/L (Class 0); Egg, White <0.10 kU/L (Class 0); Milk (Cow) <0.10 kU/L (Class 0); Peanut <0.10 kU/L (Class 0); Pork <0.10 kU/L (Class 0); SCALLOP <0.10 kU/L (Class 0); SESAME SEED <0.10 kU/L (Class 0); Shrimp <0.10 kU/L (Class 0); Soybean <0.10 kU/L (Class 0); Tomato <0.10 kU/L (Class 0); Walnut, (Food) <0.10 kU/L (Class 0); Wheat <0.10 kU/L (Class 0)
== END | disposition home or self-care (01) ==
PROVIDERS: PCP Family Medicine; Referring Provider Otolaryngology Otolaryngology/Facial Plastic Surgery; Visit Provider Otolaryngology Otolaryngology/Facial Plastic Surgery
DX: T78.40XA Allergy, unspecified, initial encounter (principal)
CPT/HCPCS: 36415; 86003

== ENCOUNTER → 2023-03-22 | Outpatient (CLI) | payer OTHER, SELFPAY ==
--- NOTE | 2023-03-22 16:20 | MRI_ITS ---
STUDY: MRI RIGHT HIP REASON FOR EXAM: Male, 47 years old. Chronic right hip pain. TECHNIQUE: Standardized fat and water weighted pulse sequences were obtained in all 3 orthogonal planes. COMPARISON: None. FINDINGS: There is degenerative arthrosis of the right hip joint with joint space narrowing, small marginal osteophyte formation, chondral thinning, and mild subchondral marrow edema in the right superior acetabulum. There is a small right hip joint effusion. Normal labrum. Intact femoral head, femoral neck and intratrochanteric region. There is no demonstrated fracture. Normal gluteus minimus, medius and iliopsoas tendons and distal insertions. There is mild right iliopsoas bursitis. There is no trochanteric bursitis. Normal superior and inferior pubic rami. Normal pubic symphysis. Normal ischial tuberosity. Normal origin of the hamstring tendons. Normal visualized iliac wing, sacroiliac joint, and sacral ala. Normal visualized soft tissue structures of the pelvis. MRI/Lower Ext Joint Only (Routine) IMPRESSION: Degenerative arthrosis of the right hip joint, with a small right hip joint effusion. Mild right iliopsoas bursitis. Electronically Signed: Leoncio Staton MD at 8:24 EST Reading Location ID and State: [facility] / [place] , Service support ,
== END | disposition home or self-care (01) ==
LOC: MRI 16:15
PROVIDERS: PCP Family Medicine; Referring Provider Family Medicine; Visit Provider Family Medicine
DX: M25.551 Pain in right hip (principal)
CPT/HCPCS: 73721

== ENCOUNTER → 2024-10-02 | Outpatient (CLI) | payer OTHER, SELFPAY ==
--- NOTE | 2024-10-02 10:26 | MRI_ITS ---
PROCEDURE: UPPER EXT/NO JT/ WO 10/02/2024 REASON FOR EXAM: PAIN, RULE OUT STENER LESION TECHNIQUE: MRI of the left thumb without contrast. Multiplanar and multisequence images were obtained without IV contrast administration. COMPARISON: COMPARISON: Left hand study 09/20/2024. FINDINGS: Bone and bone Marrow: Edema is seen on both sides of the 1st interphalangeal joint, best seen on the sagittal T2 weighted fat-suppressed image, concerning for bone bruising or other nonvisualized stress injury. Mild degenerative changes are seen throughout the 1st ray. Effusion: No joint effusion is seen. Ligaments and Tendons: Disruption of the ulnar collateral ligament at the left 1st metacarpophalangeal joint is seen, indicative of the clinical concern of Stener lesion. Adjacent edema is noted, as well. MRI/Upper Ext/No Jt/ wo IMPRESSION: 1. Disruption of the ulnar collateral ligament at the left 1st metacarpophalang eal joint is seen, indicative of the clinical concern of Stener lesion. 2. Edema is seen on both sides of the 1st interphalangeal joint, best seen on t he sagittal T2 weighted fat-suppressed image, concerning for bone bruising or other nonvisualized stress injury. Reading Location: [facility]
== END | disposition home or self-care (01) ==
PROVIDERS: PCP Family Medicine; Referring Provider Orthopaedic Surgery; Visit Provider Orthopaedic Surgery
DX: M79.645 Pain in left finger(s) (principal)
CPT/HCPCS: 73218

== ENCOUNTER 2024-11-13 17:00 | Outpatient (RCR) | payer OTHER, SELFPAY ==
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
--- NOTE | 2025-01-18 09:41 | HP.PT.NRP ---
Patient Information Patient Information: SARY GUZMAN was seen in my office for initial evaluation on 10/17/24. The following Plan of Care was established for this patient: POC Established Initial Frequency: 3x /Week Initial Duration: 4-6 Weeks Anticipated Interventions Patient/Client Instruction: Educate patient on: Condition and Plan of Care For the Purpose of:: To decrease pain and To increase ROM Therapeutic Exercise to Include: Strength training, Relaxation training, Passive ROM and Active ROM For the Purpose of:: To decrease pain, To increase ROM, To improve nutrient delivery to tissue and To improve muscle performance and motor function Manual Therapy Techniques to Include: Mobilization, Passive ROM and Soft tissue mobilization For the Purpose of:: To decrease pain, To increase ROM, To improve nutrient delivery to tissue, To improve muscle performance and motor function and To increase tolerance to activity/condition/position Thermo therapy (hot pack): Yes For the Purpose of:: To improve nutrient delivery to tissue Last Seen Last Seen: This patient was last seen in our office 11/13/24. Pertinent comments regarding their Physical therapy will appear below: Pt seen 6 visits of POC and then did not schedule or attend any further visits. At this point, it has been over two months and I will discontinue from my care. At this point I will be discontinuing this patient from physical therapy. I would be happy to see this patient again in the future if found appropriate by the physician. Thank you! Jeferson Flores, DPT, OCS, CSCS Balance/Gait/Functional tests Balance/Special Test Scores Lower Extremity Functional Score: 66
== END 2024-11-13 19:00 | disposition home or self-care (01) ==
LOC: PT 17:00
PROVIDERS: PCP Family Medicine; Visit Provider Orthopaedic Surgery
DX: M16.11 Unilateral primary osteoarthritis, right hip (principal)
CPT/HCPCS: 97110; 97140; 97161